=== PATIENT | female | born 1975 | race African-American/Black ===

== ENCOUNTER 2021-01-15 08:01 | Emergency (ER) | payer SELFPAY | END 2021-01-15 08:53 | disposition home or self-care (01) | LOC: CSHERS 08:01 | DX: R05.9 Cough, unspecified (principal); M79.10 Myalgia, unspecified site; T50.B95A Adverse effect of other viral vaccines, initial encounter; I10 Essential (primary) hypertension | CPT/HCPCS: 99283 ==

== ENCOUNTER 2021-02-22 08:03 | Emergency (ER) | payer SELFPAY ==
[2021-02-22 15:08] LABS: SARS-CoV-2 PCR by NAA Not Detected (NotDetected)
== END 2021-02-22 08:55 | disposition home or self-care (01) ==
LOC: CSHERS 08:03
DX: J06.9 Acute upper respiratory infection, unspecified (principal); Z20.822 Contact with and (suspected) exposure to COVID-19; I10 Essential (primary) hypertension
CPT/HCPCS: 87804; 99283; U0003; U0005

== ENCOUNTER 2021-03-22 11:51 | Emergency (ER) | payer SELFPAY | END 2021-03-22 13:06 | disposition left against medical advice (07) | LOC: CSHERS 11:51 | DX: Z53.21 Procedure and treatment not carried out due to patient leaving prior to being seen by health care provider (principal) ==

== ENCOUNTER 2021-05-06 15:05 | Emergency (ER) | payer SELFPAY ==
[2021-05-06] MEDS ORDERED: Ondansetron ODT 4 MG TAB ONE (16:45)
== END 2021-05-06 16:58 | disposition home or self-care (01) ==
LOC: CSHERS 15:05
DX: J06.9 Acute upper respiratory infection, unspecified (principal); R11.2 Nausea with vomiting, unspecified; I10 Essential (primary) hypertension
CPT/HCPCS: 99283; Q0162

== ENCOUNTER 2021-06-03 19:41 | Emergency (ER) | payer SELFPAY ==
[2021-06-03] MEDS ORDERED: Ondansetron ODT 4 MG TAB ONE (20:10)
== END 2021-06-03 20:35 | disposition home or self-care (01) ==
LOC: CSHERS 19:41
DX: R11.2 Nausea with vomiting, unspecified (principal); R19.7 Diarrhea, unspecified; I10 Essential (primary) hypertension
CPT/HCPCS: 99283; Q0162

== ENCOUNTER 2021-07-02 13:48 | Emergency (ER) | payer SELFPAY ==
[2021-07-02] MEDS ORDERED: Dicyclomine 20 MG/2 ML VIAL ONE (14:59)
[2021-07-02] MEDS ORDERED: Ondansetron ODT 4 MG TAB ONE (15:00)
== END 2021-07-02 15:20 | disposition home or self-care (01) ==
LOC: CSHERS 13:48
DX: B34.9 Viral infection, unspecified (principal); R11.2 Nausea with vomiting, unspecified; I10 Essential (primary) hypertension
CPT/HCPCS: 96372; 99283; J0500; Q0162

== ENCOUNTER 2025-01-20 18:56 | Emergency (ER) | payer SELFPAY | END 2025-01-20 19:04 | LOC: CSHERS 18:56 | DX: Z53.21 Procedure and treatment not carried out due to patient leaving prior to being seen by health care provider (principal) ==